=== PATIENT | female | born 1975 | race African-American/Black ===

== ENCOUNTER 2016-08-14 22:29 | Emergency (ER) | payer SELFPAY ==
[2016-08-14 23:20] LABS: Bilirubin Negative (Negative); Blood, Urine Moderate (Negative); Glucose, Urine (Dipstick) Negative (Negative); Ketone, Urine Negative (Negative); Nitrite Negative (Negative); Protein, Urine (Dipstick) Trace mg/dL (Neg-Trace); Urobilinogen 0.2 mg/dL (0.2-1.0)
[2016-08-14 23:28] LABS: Bacteria/HPF 1+ HPF (None Seen); RBC/HPF 0-3 HPF (0-3); WBC/HPF 21-50 HPF (0-3)
[2016-08-14] MEDS ORDERED: Ibuprofen 800 MG TAB ONE (23:37)
[2016-08-14] MEDS ORDERED: Sulfameth/Trimethoprim DS 800-160mg TAB ONE (23:37)
[2016-08-14] MEDS ORDERED: HYDROcodone/Acetaminophen 10/325 mg Tablet ONE (23:37)
== END 2016-08-14 23:43 | disposition home or self-care (01) ==
LOC: BURERS 22:29
DX: N39.0 Urinary tract infection, site not specified (principal); F17.210 Nicotine dependence, cigarettes, uncomplicated
CPT/HCPCS: 81003; 81015; 87086; 87480; 87491; 87510; 87591; 87660; 99284

== ENCOUNTER 2017-02-28 13:26 | Emergency (ER) | payer SELFPAY ==
[2017-02-28 14:52] LABS: Bilirubin Small (Negative); Blood, Urine Small (Negative); Clarity Cloudy (Clear); Glucose, Urine (Dipstick) Negative (Negative); Leukocyte Trace (Negative); Nitrite Negative (Negative); Protein, Urine (Dipstick) Trace mg/dL (Neg-Trace); pH, Urine 5.5 (5.0-9.0)
[2017-02-28 14:54] LABS: Specific Gravity, Urine 1.026 (1.005-1.030)
[2017-02-28 15:03] LABS: Bacteria/HPF 2+ HPF (None Seen); RBC/HPF 0-3 HPF (0-3)
== END 2017-02-28 15:18 | disposition home or self-care (01) ==
LOC: BURERS 13:26
DX: S39.012A Strain of muscle, fascia and tendon of lower back, initial encounter (principal); F17.210 Nicotine dependence, cigarettes, uncomplicated; X50.0XXA Overexertion from strenuous movement or load, initial encounter; Y92.69 Other specified industrial and construction area as the place of occurrence of the external cause; Y99.0 Civilian activity done for income or pay
CPT/HCPCS: 81003; 81015; 87086; 99283

== ENCOUNTER 2017-12-11 07:56 | Emergency (ER) | payer OTHER, SELFPAY ==
--- NOTE | 2017-12-11 09:47 | RAD ---
LEFT KNEE 4 VIEWS: Date: 12/11/17 INDICATION: Left knee pain. FINDINGS: The joint spaces are preserved. No significant degenerative change. I cannot exclude small joint effu emiliano. No fracture or acute abnormality. IMPRESSION: No evidence of osseous abnormality. Small joint effusion cannot be excluded, but is not confirmed. POS: [facility]
== END 2017-12-11 08:57 | disposition home or self-care (01) ==
LOC: BURERS 07:56
DX: S83.92XA Sprain of unspecified site of left knee, initial encounter (principal); F17.210 Nicotine dependence, cigarettes, uncomplicated; W10.9XXA Fall (on) (from) unspecified stairs and steps, initial encounter

== ENCOUNTER 2017-12-14 18:21 | Emergency (ER) | payer OTHER, SELFPAY ==
[~2017-12-14 18:21] MED LIST: Iopamidol 370 76% 100 ML VIAL ONE
[2017-12-14 19:09] LABS: Mean Corpuscular HGB CONC 32.2 g/dL (32.0-36.0); Mean Corpuscular Hemoglobin 22.4 pg (27.0-31.0); Mean Corpuscular Volume 69.4 fL (78.0-98.0); Mean Platelet Volume 7.3 fL (7.4-10.4); Platelet Count 303 thou/uL (130-400); RBC Distribution Width 16.8 % (11.5-14.5); Red Blood Cell (RBC) Count 4.48 mill/uL (4.20-5.40); White Blood Cell (WBC) Count 9.5 thou/uL (4.8-10.8)
[2017-12-14] MEDS ORDERED: Ketorolac Tromethamine 30 MG/ML VIAL ONE (19:21)
[2017-12-14] MEDS ORDERED: Fentanyl 100 MCG/2 ML VIAL ONE (19:21)
[2017-12-14 19:22] LABS: Anion Gap 17 mmol/L (10-20); BUN (Urea Nitrogen) 11 mg/dL (7.0-18.7); Calc. Creatinine Clearance 0 mL/min (70-130); Calcium 9.2 mg/dL (7.8-10.44); Carbon Dioxide 15 mmol/L (22-29); Chloride 113 mmol/L (98-107); Estimated GFR-MDRD Greater than 90; Glucose 90 mg/dL (70-105); Sodium 141 mmol/L (136-145)
[2017-12-14 19:25] LABS: #Basophils 0.1 thou/uL (0.0-0.2); #Eosinphils 0.3 thou/uL (0.0-0.7); #Lymphocytes 2.2 thou/uL (1.20-3.40); #Monocytes 0.8 thou/uL (0.11-0.59); #Neutrophils 6.2 thou/uL (1.40-6.50); %Lymphocytes 22.9 % (21.0-51.0); %Monocytes 7.9 % (0.0-10.0); %Neutrophils 65.3 % (42.0-75.0); Eosinophils 4 % (0-10); Lymphocytes 23 % (21-51); MDiff Complete? YES; Monocytes 9 % (0-10); Neutrophil 61 % (42-75); Reactive Lymphocytes 2 % (0-10); Reflex for Review?? NO
[2017-12-14 19:26] LABS: Hypochromia MODERATE=16-30 cells (100X) (0-5/hpf); Large Platelets SLIGHT; Microcytosis MARKED = >30 cells (100X) (0-5/hpf)
[2017-12-14] MEDS ORDERED: Enoxaparin Sodium 100 MG/ML SYRINGE ONE (19:36)
--- NOTE | 2017-12-14 20:32 | CT ---
CT ANGIO OF CHEST: 12/14/17 Multiple axial tomograms obtained through the chest following pulmonary angio protocol with multiplan ar reconstructions and 3D postprocessing. INDICATIONS: Shortness of breath. Elevated D-dimer. Left calf pain. The pulmonary arteries show adequate enhancement. A questionable area of low attenuation in a right upper lobe pulmonary artery is felt to be artifact from the densely opacified adjacent superior vena cava. However, there is a filling defect in a major right lower lobe pulmonary artery at its trifurcation. This is consistent with pulmonary embolus whi ch does extend into at least three branching right lower lobe pulmonary arteries. There is also a filling defect consistent with embolus in a left upper lobe pulmonary artery peripher ally. The lung vasquez appear clear. No infiltrate or effusion seen. Mediastinum is unremarkable. IMPRESSION: Bilateral pulmonary emboli are identified as described above. Findings were relayed to Dr. Francis at time of dictation. POS: [facility]
== END 2017-12-14 22:09 | disposition short-term general hospital (02) ==
LOC: BURERS 18:21
DX: I26.99 Other pulmonary embolism without acute cor pulmonale (principal); I82.4Z3 Acute embolism and thrombosis of unspecified deep veins of distal lower extremity, bilateral; S80.02XD Contusion of left knee, subsequent encounter; F17.210 Nicotine dependence, cigarettes, uncomplicated; X58.XXXD Exposure to other specified factors, subsequent encounter
CPT/HCPCS: 71275; 80048; 85025; 85379; 96372; 96374; 96375; A4216; J1650; J1885; J2270; J3010

== ENCOUNTER 2018-03-15 11:29 | Outpatient (CLI) | payer MEDICAID, SELFPAY ==
--- NOTE | 2018-03-15 17:53 | RAD ---
LEFT KNEE 4 VIEWS: DATE: 03/15/2018. FINDINGS: Comparison is made with a 12/11/2017 study. There has been no adverse interval change. No fracture, dislocation or joint space abnormality was s een. No effusion was appreciated on the lateral view. IMPRESSION: Stable exam show no acute findings. POS: [facility]
== END 2018-03-15 11:30 | disposition home or self-care (01) ==
LOC: BURRAD 11:29
PROVIDERS: ATTEND Physician Assistant
DX: M25.462 Effusion, left knee (principal); M25.562 Pain in left knee; W19.XXXD Unspecified fall, subsequent encounter

== ENCOUNTER 2018-04-11 11:36 | Emergency (ER) | payer MEDICAID ==
[2018-04-11] MEDS ORDERED: Ketorolac Tromethamine 30 MG/ML VIAL ONE (12:04)
[2018-04-11 12:10] LABS: ALT (SGPT) 9 U/L (8-55); AST (SGOT) 14 U/L (5-34); Albumin 3.7 g/dL (3.5-5.0); Alkaline Phosphatase 52 U/L (40-150); Anion Gap 11 mmol/L (10-20); BUN (Urea Nitrogen) 6 mg/dL (7.0-18.7); Bilirubin, Total 0.5 mg/dL (0.2-1.2); Calc. Creatinine Clearance 0 mL/min (70-130); Calcium 8.7 mg/dL (7.8-10.44); Carbon Dioxide 20 mmol/L (22-29); Chloride 113 mmol/L (98-107); Estimated GFR-MDRD Greater than 90; Globulin 3.4 g/dL (2.4-3.5); Glucose 112 mg/dL (70-105); Potassium 3.6 mmol/L (3.5-5.1); Protein, Total 7.1 g/dL (6.0-8.3); Sodium 140 mmol/L (136-145)
[2018-04-11 12:12] LABS: CKMB 0.6 ng/mL (0-6.6); Troponin I Less than 0.010 ng/mL (< 0.028)
[2018-04-11 12:15] LABS: #Basophils 0.1 thou/uL (0.0-0.2); #Eosinphils 0.2 thou/uL (0.0-0.7); #Monocytes 0.6 thou/uL (0.11-0.59); %Basophils 1.2 % (0.0-1.0); %Eosinophils 3.7 % (0.0-10.0); %Lymphocytes 33.1 % (21.0-51.0); %Monocytes 10.7 % (0.0-10.0); %Neutrophils 51.3 % (42.0-75.0); Anisocytosis SLIGHT = 6-15 cells (100X) (0-5/hpf); Elliptocytes SLIGHT = 2-5 cells (100X) (0-1/hpf); Hemoglobin 5.8 g/dL (12.0-16.0); Hypochromia MODERATE=16-30 cells (100X) (0-5/hpf); MDiff Complete? YES; Mean Corpuscular HGB CONC 29.4 g/dL (32.0-36.0); Mean Corpuscular Hemoglobin 19.1 pg (27.0-31.0); Mean Platelet Volume 6.1 fL (7.4-10.4); Microcytosis MODERATE=15-30 cells (100X) (0-5/hpf); Platelet Count 407 thou/uL (130-400); Poikilocytosis SLIGHT = 6-15 cells (100X) (0-5/hpf); RBC Distribution Width 17.5 % (11.5-14.5); Red Blood Cell (RBC) Count 3.04 mill/uL (4.20-5.40); Rouleaux Formation SLIGHT = 1-5 cells (100X) (None Seen); Tear Drops SLIGHT = 2-5 cells (100X) (0-1/hpf); White Blood Cell (WBC) Count 5.9 thou/uL (4.8-10.8)
[2018-04-11 12:47] LABS: Hemoglobin 5.6 g/dL (12.0-16.0)
[2018-04-11 12:59] LABS: D-Dimer Test Less than 0.27 *mcg/mL (0.27-0.43); INR-International Normal Ratio 1.2; PTT 26.3 SEC (22.9-36.1); Prothrombin Time 15.2 SEC (12.0-14.7)
--- NOTE | 2018-04-11 13:30 | RAD ---
SINGLE VIEW OF THE CHEST: Comparison: None. History: Sudden onset of left chest pain. FINDINGS: Single view of the chest shows a normal sized cardiomediastinal silhouette. There is no evidence of c onsolidation, mass, or pleural effusion. The bones are unremarkable. IMPRESSION: No evidence of acute cardiopulmonary disease. POS: [facility]
== END 2018-04-11 14:43 | disposition short-term general hospital (02) ==
LOC: BURERS 11:36
DX: D64.9 Anemia, unspecified (principal); F17.210 Nicotine dependence, cigarettes, uncomplicated; Z86.718 Personal history of other venous thrombosis and embolism; Z79.01 Long term (current) use of anticoagulants
CPT/HCPCS: 36430; 71045; 80053; 82553; 84484; 85025; 85379; 85610; 85730; 86850; 86900; 86901; 86922; 96374; J1885; P9016

== ENCOUNTER 2018-05-15 07:26 | Emergency (ER) | payer MEDICAID, OTHER | END 2018-05-15 08:20 | disposition home or self-care (01) | LOC: BURERS 07:26 | DX: B37.3 Candidiasis of vulva and vagina (principal); F17.210 Nicotine dependence, cigarettes, uncomplicated; Z79.82 Long term (current) use of aspirin; Z79.899 Other long term (current) drug therapy | CPT/HCPCS: 87255; 99283 ==

== ENCOUNTER → 2019-09-11 | Emergency (ER) | payer OTHER, SELFPAY | LOC: BURERS 09:50 | DX: K04.7 Periapical abscess without sinus (principal); F17.210 Nicotine dependence, cigarettes, uncomplicated; Z79.82 Long term (current) use of aspirin | CPT/HCPCS: 99282 ==

== ENCOUNTER 2020-03-22 10:06 | Emergency (ER) | payer SELFPAY | END 2020-03-22 10:17 | disposition home or self-care (01) | LOC: BURERS 10:06 | DX: I10 Essential (primary) hypertension (principal); F17.210 Nicotine dependence, cigarettes, uncomplicated | CPT/HCPCS: 99281 ==

== ENCOUNTER 2022-05-06 15:06 | Emergency (ER) | payer SELFPAY | END 2022-05-06 15:53 | disposition home or self-care (01) | LOC: BURERS 15:06 | DX: S70.01XA Contusion of right hip, initial encounter (principal); I10 Essential (primary) hypertension; E78.5 Hyperlipidemia, unspecified; F17.210 Nicotine dependence, cigarettes, uncomplicated; W01.0XXA Fall on same level from slipping, tripping and stumbling without subsequent striking against object, initial encounter ==

== ENCOUNTER 2022-08-26 08:30 | Emergency (ER) | payer SELFPAY | END 2022-08-26 08:58 | disposition home or self-care (01) | LOC: BURERS 08:30 | DX: L84 Corns and callosities (principal); E78.5 Hyperlipidemia, unspecified; I10 Essential (primary) hypertension; F17.210 Nicotine dependence, cigarettes, uncomplicated; Z79.899 Other long term (current) drug therapy | CPT/HCPCS: 99283 ==

== ENCOUNTER 2022-12-12 03:52 | Emergency (ER) | payer SELFPAY ==
[2022-12-12] MEDS ORDERED: Acetaminophen 500 MG TAB ONE (04:24)
[2022-12-12 04:58] LABS: SARS-CoV-2 NAA Rapid Test Not Detected (NotDetected)
== END 2022-12-12 05:14 | disposition home or self-care (01) ==
LOC: BURERS 03:52
DX: S16.1XXA Strain of muscle, fascia and tendon at neck level, initial encounter (principal); E78.5 Hyperlipidemia, unspecified; I10 Essential (primary) hypertension; F17.210 Nicotine dependence, cigarettes, uncomplicated; X58.XXXA Exposure to other specified factors, initial encounter
CPT/HCPCS: 87081; 87430; 87804; 99283; U0002

== ENCOUNTER 2023-04-09 07:35 | Emergency (ER) | payer SELFPAY | END 2023-04-09 08:38 | disposition home or self-care (01) | LOC: BURERS 07:35 | DX: R59.0 Localized enlarged lymph nodes (principal); I10 Essential (primary) hypertension; E78.5 Hyperlipidemia, unspecified; F17.210 Nicotine dependence, cigarettes, uncomplicated; Z79.899 Other long term (current) drug therapy | CPT/HCPCS: 87081; 87430; 99283 ==

== ENCOUNTER 2024-01-05 14:44 | Emergency (ER) | payer SELFPAY ==
[2024-01-05 15:40] LABS: INR-International Normal Ratio 0.9; Prothrombin Time 12.1 sec (12.0-14.7)
[2024-01-05 15:41] LABS: PTT 23.5 sec (22.9-36.1)
[2024-01-05 15:46] LABS: Hematocrit 46.5 % (36.0-47.0); Hemoglobin 16.3 g/dL (12.0-16.0); Mean Corpuscular Hemoglobin 32.9 pg (27.0-31.0); Mean Corpuscular Volume 93.9 fl (78.0-98.0); Platelet Count 237 10x3/uL (130-400); RBC Distribution Width 11.8 % (11.5-14.5); Red Blood Cell (RBC) Count 4.96 mill/uL (4.20-5.40); White Blood Cell (WBC) Count 8.5 10x3/uL (4.8-10.8)
[2024-01-05 15:48] LABS: ALT (SGPT) 25 U/L (8-55); AST (SGOT) 21 U/L (5-34); Albumin 3.7 g/dL (3.5-5.0); Alkaline Phosphatase 63 U/L (40-110); Anion Gap 14 mmol/L (10-20); BUN (Urea Nitrogen) 7 mg/dL (7.0-18.7); Bilirubin, Total 0.8 mg/dL (0.2-1.2); Calc. Creatinine Clearance 0 mL/min (70-130); Calcium 9.4 mg/dL (7.8-10.44); Carbon Dioxide 23 mmol/L (22-29); Chloride 106 mmol/L (98-107); Estimated GFR 83; Globulin 3.7 g/dL (2.4-3.5); Glucose 90 mg/dL (70-105); Potassium 3.4 mmol/L (3.5-5.1); Protein, Total 7.4 g/dL (6.0-8.3); Sodium 140 mmol/L (136-145)
[2024-01-05 15:49] LABS: Troponin I Less than 0.010 ng/mL (< 0.028)
[2024-01-05 16:04] LABS: Band 1 % (5-11); Eosinophils 2 % (0-10); Lymphocytes 31 % (21-51); MDiff Complete? YES; Monocytes 8 % (0-10); Neutrophil 57 % (42-75)
[2024-01-05 16:10] LABS: Cardiac Risk 5.2 (Less than 4.5)
[2024-01-05] MEDS ORDERED: Aspirin 325 MG TAB ONE (17:30)
== END 2024-01-05 18:15 | disposition home or self-care (01) ==
LOC: BURERS 14:44
DX: R20.2 Paresthesia of skin (principal); R29.701 NIHSS score 1; I10 Essential (primary) hypertension; F17.210 Nicotine dependence, cigarettes, uncomplicated; Z79.899 Other long term (current) drug therapy
CPT/HCPCS: 36416; 70450; 70496; 70498; 80053; 80061; 84484; 85025; 85610; 85730; 93005